=== PATIENT | male | born 1995 | race Two or more races ===

== ENCOUNTER 2022-08-27 10:47 | Outpatient (CLI) | payer OTHER ==
--- NOTE | 2022-08-27 11:17 | Sleep Patient Instructions ---
Sleep Center Visit Summary - Patient Visit Information Reason for Visit: Initial visit for evaluation of possibility of sleep disordered breathing. - Patient Instructions Instructions Attached: Sleep Clinic Visit, Sleep Lab Test Additional Instructions: Patient will complete a sleep study, either an in-lab polysomnography (PSG) or home sleep study (HST). They will follow-up in office after the sleep study is completed to hear the results and talk about therapy if needed. Patient will be called by office staff to schedule this appointment but may contact us with any questions. - Clinic Information Contact: [facility] [address] [place] [address] [email or web address] T: [phone]
--- NOTE | 2022-08-27 11:47 | SLEEP CARE CONSULTATION ---
Information from patient questionnaire entered by Michell La. I have reviewed and concur with the information entered by Michell La. This document represents the service I personally performed and the decisions made by me, Sussy Mireles ARNP. History of Present Illness Service Date and Time: 08/27/2022 1047 Reason for Visit: New patient Chief Complaint: reports: Insomnia, Snoring, Observed pauses in breathing, Frequent awakenings at night Date of Onset: 1YR, snoring; grinding teeth longer Usual bedtime: 10-11PM Time it takes to fall asleep: 20-30MINS Snores at night: Yes Observed to quit breathing while asleep: Yes (couple of times) Sleeps alone due to snoring: Yes Number of times waking at night: 2 Reasons for waking at night: reports: Gasping for air (once only, does not know if he was dreaming or not), Bathroom. denies: Choking Toss, Turn, or Twitch while sleeping: Yes Recalls having dreams: No Usually gets out of bed at: 0388-1096 Feels refreshed in the morning: No Morning headache: Yes (3-4 days a week; [employer]) Sleepy or fatigued during the day: Yes Ever fallen asleep while driving: No Takes day naps: No Dreams during day naps: No Prior sleep studies: No Additional HPI information: I had the pleasure of seeing TALYA YEPEZ today regarding the possibility of him having a sleep disorder. His current complaints are frequent night awakenings, insomnia, observed pauses in breathing and snoring. 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 His has started telling him that he is snoring loudly. He will waking up with a sore, dry throat in the mornings. He feels a lot of tension in his jaw/face when he wakes up in the morning from grinding his teeth at night. His will sometimes sleep in separate room due to the loud snoring. - Parasomnia Symptoms Ever been unable to move upon waking from sleep: No Walks in sleep: No Talks in sleep: Yes Ever acted out dreams in sleep: Yes Ever felt weak in the knees when startled or emotional: Yes (has not fallen to ground) Bothered by creepy, crawly, restless sensations in legs: No Problems with memory or concentration: Yes (memory a little) Subjective Initial [place] Sleepiness Scale score: 11 (08/27/22) Past Medical History Past Medical History: reports: Anxiety, Depression, Other (Bruxism) Social History The patient's occupation is a AM. Patient is and lives in . Have you smoked in the past 12 months: No Alcohol use: No Caffeine use: Yes Caffeine amount and frequency: 1 24 ounce mocha Family History Family history of sleep disordered breathing: No Allergies and Home Medications Known drug allergies: No Drug allergies reviewed: Yes Home medication list reviewed: Yes Allergy and home medication list: Medications: Prozac 40 mg daily Review of Systems Weight gain over past 5 years: 20 Cardiovascular: denies: high blood pressure Gastrointestinal: reports: heartburn, abdominal pain Neurological: reports: headaches Psychiatric: reports: anxiety, depression Ear/Nose/Throat: reports: dry mouth/throat (in mornings), wisdom teeth removed. denies: tonsillectomy Endocrine: reports: unexplained weakness Immunologic: denies: allergies to food or environment Physical Exam Vital signs obtained and entered by: MICHELL Montelongo MA Blood Pressure: 116/74 (LEFT ARM) Cuff size: regular Heart Rate: 65 O2 Saturation: 100 Height: 5 ft 9 in Weight: 177 lb Body Mass Index: 26.1 BMI Classification: Overweight Neck circumference: 15.5 Mouth and throat: narrow oropharynx Soft palate: long Hard palate: normal Uvula: normal Uvula visualization: 25% Mallampati Class III Tongue: enlarged in size with teeth brown on lateral edges Tonsils: 1+ Heart: regular rate and rhythm Lungs: clear bilaterally Impression and Plan 1. Suspected Obstructive Sleep Apnea-Hypopnea Syndrome, as suggested by a history of loud and irregular snoring, observed cessation of breath while asleep, morning headache, frequent awakening during the night, unrefreshed sleep, and excessive daytime sleepiness. Narrow oropharynx and obesity are common predisposing factors for obstructive sleep apnea-hypopnea syndrome. I recommend proceeding to polysomnography to confirm the diagnosis and to assess severity. If the patient has significant sleep disordered breathing, a manual CPAP titration study will also be performed to find the optimal treatment pressure. I informed the patient of what the sleep studies involve and after some discussion, obtained agreement to proceed. The pathophysiology of obstructive sleep apnea-hypopnea syndrome was discussed with the patient and health risks of cardiovascular and cerebrovascular disease if not treated. Risks of drowsy driving discussed in detail and patient advised to avoid long distance driving and to assembler for puller over hand at the first sign of drowsiness. Patient agreed to plan. * Schedule polysomnography +- manual CPAP titration study and return in 1-2 weeks after the study to discuss result and initiate therapy. * Avoid long distance driving or driving when feeling sleepy. * Avoid alcohol, sedative and muscle relaxant around bedtime. * Attempt to lose weight. * Review instructions provided by trained office staff on how to prepare for the sleep study. * Return for follow-up after sleep study completed. Counseling Topics: Weight loss health impact Visit Type: In Office Time Spent with Patient (minutes): 31 Provider Statement: I spent 100% of the Face to Face Visit with the patient with greater than 50% spent counseling the patient and coordination of care.
[2022-08-27 12:21] VITALS: BP 116/74
== END 2022-08-27 10:48 | disposition home or self-care (01) ==
LOC: SC 10:47
PROVIDERS: ATTEND Nurse Practitioner Family
DX: R06.83 Snoring (principal); G47.8 Other sleep disorders; R06.81 Apnea, not elsewhere classified; R51.9 Headache, unspecified; G47.10 Hypersomnia, unspecified; F32.A Depression, unspecified; E66.3 Overweight; Z68.26 Body mass index [BMI] 26.0-26.9, adult
CPT/HCPCS: 99203; 99212

== ENCOUNTER 2022-09-27 08:50 | Outpatient (CLI) | payer OTHER | END 2022-09-27 08:51 | disposition home or self-care (01) | LOC: SC 08:50 | PROVIDERS: ATTEND Nurse Practitioner Family | DX: R06.83 Snoring (principal); G47.8 Other sleep disorders; R06.81 Apnea, not elsewhere classified; R51.9 Headache, unspecified; G47.10 Hypersomnia, unspecified; F32.A Depression, unspecified; E66.3 Overweight | CPT/HCPCS: 95806 ==

== ENCOUNTER 2022-10-15 08:20 | Outpatient (CLI) | payer OTHER | END 2022-10-15 08:21 | disposition home or self-care (01) | LOC: SC 08:20 | PROVIDERS: ATTEND Nurse Practitioner Family | DX: Z53.9 Procedure and treatment not carried out, unspecified reason (principal) ==

== ENCOUNTER 2022-10-20 21:17 | Outpatient (CLI) | payer OTHER | END 2022-10-20 21:18 | disposition home or self-care (01) | LOC: SC 21:17 | PROVIDERS: ATTEND Nurse Practitioner Family | DX: G47.63 Sleep related bruxism (principal) | CPT/HCPCS: 95810 ==

== ENCOUNTER 2022-10-25 14:56 | Outpatient (CLI) | payer OTHER ==
--- NOTE | 2022-10-25 14:26 | SLEEP CARE CONSULTATION ---
Information from patient questionnaire entered by Michell La. I have reviewed and concur with the information entered by Michell La. This document represents the service I personally performed and the decisions made by , Sussy Mireles ARNP. History of Present Illness Service Date and Time: 10/25/2022 1400 Initial [place] Sleepiness Scale score: 11 (08/27/22) Current [place] Sleepiness Scale score: 15 (10/25/22) Additional HPI information: TALYA YEPEZ returns via telehealth visit for follow up and results of the recently performed polysomnography. The patient was informed of the following findings: No significant sleep disordered breathing with an average AHI of 0.1 and teofilo oxygen saturation of 94%. Bruxism was noted. I explained the pathophysiology behind obstructive sleep apnea. Patient does not have sleep apnea and was advised how weight gain could increase the risk of developing sleep apnea in the future. I strongly encouraged the patient to lose weight. Patient has light snoring. Snoring can be reduced by weight loss. Weight loss is best achieved with diet consult. Patient instructed to contact PCP for referral. Snoring can also be treated with an oral appliance from a dentist. Advised to check insurance coverage. In addition, an ENT evaluation can be do to see if other treatment is indicated. Patient counseled not drink alcohol less than 4 hours before bedtime as it can increase snoring and apnea. Patient was cautioned about risks of drowsy driving until sleepiness symptoms resolve. Patient denies drowsy driving. Sleep Study - Results Type of Sleep Study: Polysomnography (COMPLETED 10/20/22) Prior sleep studies: No Polysomnography/Home Sleep Study results: IMPRESSION: The quality of the study is good. The patient had normal sleep efficiency. The sleep architecture was relatively normal as well considering the first night effect. Respiratory monitoring showed no evidence of sleep disordered breathing (AHI = 0.1) or hypoxia (teofilo oxygen saturation of 94%). The patient slept adequately in supine position (supine AHI = 0.7; non-supine = 0.00). Snore was infrequent and light in intensity. There was no significant periodic leg movement of sleep. Cardiac rhythm was normal sinus rhythm without significant arrhythmia. No abnormal behavior (parasomnia) observed during the night except for bruxism. Allergies and Home Medications Known drug allergies: No Drug allergies reviewed: Yes Home medication list reviewed: Yes (no changes) Allergy and home medication list: Allergies No Known Drug Allergies Allergy (Verified 10/24/22 14:52) Review of Systems Review of systems same as previous: Yes (infection in stomach, finished meds) Physical Exam Vital signs obtained and entered by: MICHELL Montelongo MA Height: 5 ft 9 in (PER PT ) Weight: 172 lb (PER PT) Body Mass Index: 25.4 BMI Classification: Overweight Impression and Plan 1. Snoring but no significant sleep disordered breathing. Patient advised that often weight loss will reduce snoring as well as apnea risk. An oral appliance can also be used for snoring. This would require a dental consultation. Patient cautioned not to use other online appliances as can cause bite issues. Patient is advised to check if insurance will cover. An ENT consult can also be helpful to determine if any other treatment is an option. 2. Bruxism. Bruxism was noted during the sleep study. He was advised to follow up with dentist for treatment as necessary. He voiced understanding. * Follow up with dentist for further evaluation of bruxism * Maintain a healthy weight * Avoid alcohol consumption near bedtime * The patient is cautioned about driving until sleepiness is completely resolved. * Return as needed for follow up. Counseling Topics: Weight loss health impact Visit Type: Telehealth Phone Video Type: Doximity Patient Location: Work Location of Provider: Office Patient agrees and consents to this telehealth visit type: Yes Patient agrees to have their insurance billed: Yes Time Spent with Patient (minutes): 10 Provider Statement: I spent 100% of the Telehealth Phone Call with the patient with greater than 50% spent counseling the patient and coordination of care.
== END 2022-10-25 14:57 | disposition home or self-care (01) ==
LOC: SC 14:56
PROVIDERS: ATTEND Nurse Practitioner Family
DX: R06.83 Snoring (principal); G47.63 Sleep related bruxism; E66.3 Overweight; Z68.25 Body mass index [BMI] 25.0-25.9, adult